=== PATIENT | male | born 1955 | race Caucasian/White ===

== ENCOUNTER 2023-08-06 10:30 | Observation (INO) ==
[2023-08-06] MEDS ORDERED: TUSSIONEX PENNKINETIC SUSP PO PRN (11:56)
[2023-08-06] MEDS ORDERED: NovoLIN R (or HumuLIN R) SUBCUT PRN (11:59)
[2023-08-06] MEDS ORDERED: ZOFRAN INJ 4 MG VIAL IVP PRN (12:00)
[2023-08-06] MEDS: VSL#3 PO SCH (13:20)
[2023-08-06] MEDS: LEVAQUIN PREMIX IV 500 MG 500 MG/100 ML BAG IV SCH (13:20)
[2023-08-06] MEDS: ROBITUSSIN DM PO SCH ×3 (13:20→20:19)
[2023-08-06] MEDS: NS 1,000 ML IV 1,000 ML IV SCH ×3 (13:21→23:35)
[2023-08-06 13:51] VITALS: BMI 35.6
[2023-08-06] MEDS: DUONEB 0.5 MG/3 MG (3 mL) NEB SCH ×2 (14:08→20:23)
[2023-08-06] MEDS: PULMICORT NEB TX 0.5 MG NEB SCH ×2 (14:08→20:22)
[2023-08-06] MEDS: FORTAZ or TAZICEF VIAL INJ 1 G in NS 100 ML IV 100 ML IV SCH ×3 (14:09→21:05)
--- NOTE | 2023-08-06 14:12 | RAD ---
HISTORYPneumoniaSTUDYChest PA and lateral viewsCOMPARISONNoneFINDINGSThe heart is not significantly enlarged. No acute pulmonary infiltrate, pneumonia or atelectasis noted. There is a calcified granuloma in the right lower lung.IMPRESSIONPostinflammatory calcification right lung. No acute disease demonstrated.Electronically signed by: TRACEY LOU (Aug 06, 2023 14:11:53)
[2023-08-06 14:19] LABS: ABG ALLEN TEST POS; ABG BASE EXCESS 4.9 mmol/L (-2.0-2.0); ABG HCO3 29.2 mmol/L (22-26)
[2023-08-06 15:28] LABS: BASOPHILS % (AUTO) 0.5 % (0.2-1.0); EOSINOPHILS # (AUTO) 0.1 x10^3/uL (0.0-0.2); EOSINOPHILS % (AUTO) 1.7 % (0.9-2.9); HEMATOCRIT 44.2 % (42.0-54.0); HEMOGLOBIN 15.1 g/dL (13.5-18.0); LYMPHOCYTES % (AUTO) 26.8 % (21.0-51.0); MEAN CORPUSCULAR HGB CONC 34.1 g/dL (33.0-35.0); MEAN CORPUSCULAR VOLUME 96.5 fL (80.0-100.0); MEAN PLATELET VOLUME 8.7 fL (7.4-11.0); MONOCYTES # (AUTO) 0.5 x10^3/uL (0.3-0.8); MONOCYTES % (AUTO) 7.2 % (0.0-13.0); NEUTROPHILS # (AUTO) 4.8 x10^3/uL (2.2-4.8); NEUTROPHILS % (AUTO) 63.8 % (42.0-75.0); PLATELET COUNT 192 X10^3/uL (150.0-450.0); RED BLOOD COUNT 4.57 X10^6/uL (4.7-6.0); RED CELL DISTRIBUTION WIDTH 14.5 % (11.6-16.5); WHITE BLOOD COUNT 7.4 X10^3/uL (3.6-10.0)
[2023-08-06 15:41] LABS: ALANINE AMINOTRANSFERASE 43 Units/L (12-78); ALBUMIN 3.7 g/dL (3.4-5.0); ALKALINE PHOSPHATASE 76 Units/L (46-116); ASPARTATE AMINO TRANSFERASE 48 Units/L (15-37); BLOOD UREA NITROGEN 20 mg/dL (7-18); CALCIUM 8.7 mg/dL (8.5-10.1); CHLORIDE 100 mmol/L (98-107); COR NA(FOR HYPERGLY) 139 mmol/L (136-145); CREATININE 1.11 mg/dL (0.70-1.30); GLUCOSE 113 mg/dL (65-99); POTASSIUM 3.4 mmol/L (3.5-5.1); SODIUM 139 mmol/L (136-145); TOTAL PROTEIN 7.5 g/dL (6.4-8.2); eGFR NON BLACK RACES > 60 (>60)
[2023-08-06] MEDS ORDERED: CONSULT PHARMACY - POTASSIUM & MAGNESIUM XX SCH (16:00)
[2023-08-06] MEDS ORDERED: K-DUR TAB 20 MEQ PO SCH (16:00)
[2023-08-06] MEDS: SNACK - Diabetic Appropriate PO SCH (20:19)
[2023-08-06] MEDS: COLACE CAP 100 MG PO PRN (20:19)
[2023-08-06] MEDS: MILK OF MAGNESIA PO PRN (20:19)
[2023-08-06] MEDS ORDERED: ZOFRAN TAB 4 MG PO PRN (21:18)
[2023-08-06] MEDS ORDERED: ULTRAM PO PRN (21:18)
[2023-08-06] MEDS ORDERED: ATIVAN TAB 1 MG PO PRN (21:18)
[2023-08-07] MEDS: NS 1,000 ML IV 1,000 ML IV SCH ×4 (03:13→19:15)
[2023-08-07] MEDS: FORTAZ or TAZICEF VIAL INJ 1 G in NS 100 ML IV 100 ML IV SCH ×3 (05:10→21:11)
--- NOTE | 2023-08-07 06:11 | RAD ---
HISTORYSOB Relevant Clinical InformationSTUDYCHEST, 1 [id number]/2023FINDINGSThe trachea is midline. The cardiac silhouette is unremarkable. The lungs are clear without focal infiltrate or effusion. Small calcified granuloma within the right lung base. The bony thorax is unremarkable.IMPRESSIONNo acute cardiopulmonary findings .Electronically signed by: Alberto Alex (Aug 07, 2023 06:09:56)
[2023-08-07] MEDS: DUONEB 0.5 MG/3 MG (3 mL) NEB SCH ×4 (06:15→20:30)
[2023-08-07 06:33] LABS: BASOPHILS % (AUTO) 0.6 % (0.2-1.0); EOSINOPHILS # (AUTO) 0.1 x10^3/uL (0.0-0.2); EOSINOPHILS % (AUTO) 2.2 % (0.9-2.9); HEMATOCRIT 38.4 % (42.0-54.0); HEMOGLOBIN 13.1 g/dL (13.5-18.0); LYMPHOCYTES # (AUTO) 1.5 X10^3/uL (1.3-2.9); LYMPHOCYTES % (AUTO) 26.2 % (21.0-51.0); MEAN CORPUSCULAR HGB CONC 34.2 g/dL (33.0-35.0); MEAN CORPUSCULAR VOLUME 96.7 fL (80.0-100.0); MEAN PLATELET VOLUME 8.7 fL (7.4-11.0); MONOCYTES # (AUTO) 0.5 x10^3/uL (0.3-0.8); MONOCYTES % (AUTO) 8.6 % (0.0-13.0); NEUTROPHILS # (AUTO) 3.6 x10^3/uL (2.2-4.8); NEUTROPHILS % (AUTO) 62.4 % (42.0-75.0); PLATELET COUNT 163 X10^3/uL (150.0-450.0); RED BLOOD COUNT 3.97 X10^6/uL (4.7-6.0); RED CELL DISTRIBUTION WIDTH 14.1 % (11.6-16.5); WHITE BLOOD COUNT 5.8 X10^3/uL (3.6-10.0)
[2023-08-07 07:00] LABS: ALANINE AMINOTRANSFERASE 34 Units/L (12-78); ALBUMIN 2.9 g/dL (3.4-5.0); ALKALINE PHOSPHATASE 57 Units/L (46-116); ASPARTATE AMINO TRANSFERASE 38 Units/L (15-37); BLOOD UREA NITROGEN 16 mg/dL (7-18); CALCIUM 7.9 mg/dL (8.5-10.1); CARBON DIOXIDE 31.5 mmol/L (21-32); CHLORIDE 103 mmol/L (98-107); COR CA(FOR HYPOALB) 8.8 mg/dL (8.5-10.1); COR NA(FOR HYPERGLY) 140 mmol/L (136-145); GLUCOSE 150 mg/dL (65-99); SODIUM 139 mmol/L (136-145); TOTAL PROTEIN 5.9 g/dL (6.4-8.2); eGFR NON BLACK RACES > 60 (>60)
[2023-08-07] MEDS: PULMICORT NEB TX 0.5 MG NEB SCH ×2 (08:53→20:30)
[2023-08-07] MEDS ORDERED: TOPROL XL PO ONE (08:55)
[2023-08-07] MEDS ORDERED: TOPROL XL PO SCH (09:00)
[2023-08-07] MEDS: LEVAQUIN PREMIX IV 500 MG 500 MG/100 ML BAG IV SCH (09:02)
[2023-08-07] MEDS: ROBITUSSIN DM PO SCH ×4 (09:03→20:33)
[2023-08-07] MEDS: CLARITIN PO SCH (09:03)
[2023-08-07] MEDS: VSL#3 PO SCH (09:03)
[2023-08-07] MEDS: ZESTORETIC 20/25 MG PO SCH (09:03)
[2023-08-07] MEDS: LOVENOX INJ 40 MG SYR SC SCH (09:03)
[2023-08-07] MEDS: GLUCOPHAGE XR 24-HR PO SCH (09:03)
--- NOTE | 2023-08-07 11:13 | DR.UPDATE ---
H&P Update Prescription drug monitoring program results: PDMP reviewed and no concerns identified H&P Reviewed: Yes Any changes to H&P?: Yes Changes noted:: WAS A DIRECT ADMISSION TO THE HOSPITAL, OBSERVATION STATUS, FOR TREATMENT OF BRONCHOPNEUMONIA, FAILED OUTPATIENT TREATMENT. PATIENT HAS HAD MULTIPLE ROCEPHIN INJECTIONS AND HAS ALSO BEEN TAKING CIPRO 500MG BID AND COUGH MEDICATION WITH CODEINE SINCE 07/24/23. HE DENIES IMPROVEMENT IN SYMPTOMS DESPITE COMPLIANCE WITH MEDICATIONS. HE CONTINUES TO HAVE A COUGH THAT IS PRODUCTIVE OF YELLOW SPUTUM, SHORTNESS OF BREATH, AND GENERALIZED WEAKNESS. HE HAS A PMH OF HYPERLIPIDEMIA, HTN, DM II, BPH, ANXIETY, GERD, ALLERGIC RHINITIS. ON ARRIVAL TO THE HOSPITAL, HIS VITALS WERE: 98.8-94-20-92%-126/70. LABS WERE OBTAINED. WBC 7.4, RBC 4.57, HGB 15.1, HCT 44.2, PLT COUNT 192, SODIUM 139, POTASSIUM 3.4, CHLORIDE 100, CARBON DIOXIDE 31.0, BUN 20, CREATININE 1.11, GLUCOSE 113, CALCIUM 8.7, TOTAL BILI 1.00, AST 48, ALT 43, ALK PHOS 76, TOTAL PROTEIN 7.5, ALBUMIN 3.7, MAGNESIUM 2.0. BLOOD AND SPUTUM CULTURES WERE SET UP. A RESPIRATORY VIRAL PANEL WAS ALSO SET UP. ABG WAS OBTAINED AND REVEALED: PH 7.460, PC02 41, P02 81, HC03 29.2, 02 SAT 96, BASE EXCESS 4.9, FI02 21.0. ON ADMISSION, HE WAS STARTED ON NORMAL SALINE AT 125 ML/HR, FORTAZ 1G IV Q8H, LEVAQUIN 500MG IV DAILY, DUONEBS TID, PULMICORT NEBS BID, ROBITUSSIN DM QID, TUSSIONEX 5ML Q12H PRN, LOVENOX 40MG SC DAILY, OTBS ACHS, HUMULIN R SLIDING SCALE, ZOFRAN 4MG IV Q4H PRN. WE WILL RESUME HIS HOME MEDICATIONS OF PEPCID, ZESTORETIC, CLARITIN, ATIVAN, GLUCOPHAGE, TOPROL XL, CRESTOR, FLOMAX, AND TRAMADOL. OTHERWISE, WE PLAN TO FOLLOW UP WITH AM LABS AND CONTINUE TO MONITOR. TIME SPENT ON CLINICAL ASSESSMENT, REVIEWING LABS AND IMAGING, DECISION MAKING, AND DOCUMENTATION GREATER THAN 75 MINUTES. Patient was examined?: Yes
[2023-08-07] MEDS: PEPCID TAB 40 MG PO SCH ×2 (18:24→20:47)
[2023-08-07] MEDS ORDERED: PEPCID TAB 40 MG ONE (18:25)
[2023-08-07] MEDS: MILK OF MAGNESIA PO PRN (18:26)
[2023-08-07] MEDS: COLACE CAP 100 MG PO PRN ×2 (18:26→20:33)
[2023-08-07] MEDS: SNACK - Diabetic Appropriate PO SCH (19:15)
[2023-08-07] MEDS ORDERED: CRESTOR TAB 10 MG PO SCH (21:00)
[2023-08-07] MEDS ORDERED: FLOMAX PO SCH (21:00)
[2023-08-07 23:56] VITALS: O2SAT 95
[2023-08-08] MEDS: NS 1,000 ML IV 1,000 ML IV SCH ×2 (00:04→03:10)
[2023-08-08 04:46] VITALS: RESP 20
[2023-08-08] MEDS: FORTAZ or TAZICEF VIAL INJ 1 G in NS 100 ML IV 100 ML IV SCH (05:07)
[2023-08-08 05:52] LABS: BASOPHILS % (AUTO) 0.8 % (0.2-1.0); EOSINOPHILS # (AUTO) 0.2 x10^3/uL (0.0-0.2); EOSINOPHILS % (AUTO) 2.6 % (0.9-2.9); HEMATOCRIT 37.6 % (42.0-54.0); HEMOGLOBIN 12.9 g/dL (13.5-18.0); LYMPHOCYTES # (AUTO) 1.7 X10^3/uL (1.3-2.9); LYMPHOCYTES % (AUTO) 26.9 % (21.0-51.0); MEAN CORPUSCULAR HEMOGLOBIN 33.3 pg (27.0-34.0); MEAN CORPUSCULAR HGB CONC 34.3 g/dL (33.0-35.0); MEAN CORPUSCULAR VOLUME 97.3 fL (80.0-100.0); MEAN PLATELET VOLUME 8.4 fL (7.4-11.0); MONOCYTES # (AUTO) 0.6 x10^3/uL (0.3-0.8); MONOCYTES % (AUTO) 8.8 % (0.0-13.0); NEUTROPHILS # (AUTO) 3.8 x10^3/uL (2.2-4.8); NEUTROPHILS % (AUTO) 60.9 % (42.0-75.0); PLATELET COUNT 155 X10^3/uL (150.0-450.0); RED BLOOD COUNT 3.86 X10^6/uL (4.7-6.0); WHITE BLOOD COUNT 6.3 X10^3/uL (3.6-10.0)
[2023-08-08] MEDS: DUONEB 0.5 MG/3 MG (3 mL) NEB SCH (06:09)
[2023-08-08 06:18] LABS: ALANINE AMINOTRANSFERASE 33 Units/L (12-78); ALBUMIN 2.8 g/dL (3.4-5.0); ALKALINE PHOSPHATASE 60 Units/L (46-116); ASPARTATE AMINO TRANSFERASE 38 Units/L (15-37); BLOOD UREA NITROGEN 11 mg/dL (7-18); CALCIUM 7.9 mg/dL (8.5-10.1); CARBON DIOXIDE 27.3 mmol/L (21-32); CHLORIDE 105 mmol/L (98-107); COR CA(FOR HYPOALB) 8.9 mg/dL (8.5-10.1); COR NA(FOR HYPERGLY) 140 mmol/L (136-145); CREATININE 1.04 mg/dL (0.70-1.30); GLUCOSE 190 mg/dL (65-99); POTASSIUM 4.2 mmol/L (3.5-5.1); SODIUM 138 mmol/L (136-145); TOTAL PROTEIN 5.8 g/dL (6.4-8.2); eGFR NON BLACK RACES > 60 (>60)
--- NOTE | 2023-08-08 07:35 | RAD ---
EXAM:CHEST, 1 VIEWHISTORY:SOB, PNEUMONIACOMPARISON:08/07/2023.TECHNIQUE: .br.br.br.br contours appear stable compared to prior. Similar minor left base subsegmental atelectasis. Similar-appearing right lower lung calcified granuloma. No definite pleural effusion pneumothorax.IMPRESSION:No significant change compared to prior radiograph.THIS IS AN ELECTRONICALLY VERIFIED FINAL REPORT08/08/2023 7:32 AM - Electronically signed by Jero Nascimento MD
[2023-08-08] MEDS ORDERED: TOPROL XL PO ONE (08:28)
[2023-08-08] MEDS: PULMICORT NEB TX 0.5 MG NEB SCH (08:51)
[2023-08-08] MEDS: ZESTORETIC 20/25 MG PO SCH (08:52)
[2023-08-08] MEDS: LOVENOX INJ 40 MG SYR SC SCH (08:52)
[2023-08-08] MEDS: ROBITUSSIN DM PO SCH (08:52)
[2023-08-08] MEDS: VSL#3 PO SCH (08:53)
[2023-08-08] MEDS: LEVAQUIN PREMIX IV 500 MG 500 MG/100 ML BAG IV SCH (08:54)
[2023-08-08] MEDS: GLUCOPHAGE XR 24-HR PO SCH (08:54)
[2023-08-08] MEDS: CLARITIN PO SCH (08:54)
[2023-08-08 09:51] VITALS: BP 121/79; PULSE 75; TEMP 98.1
== END 2023-08-08 12:05 | disposition home or self-care (01) ==
LOC: MED/SURG
PROVIDERS: ADMIT Internal Medicine; ATTEND Internal Medicine
DX: E78.2 Mixed hyperlipidemia; I10 Essential (primary) hypertension; F41.8 Other specified anxiety disorders; R53.1 Weakness; K21.9 Gastro-esophageal reflux disease without esophagitis; E11.65 Type 2 diabetes mellitus with hyperglycemia; R74.01 Elevation of levels of liver transaminase levels; J18.0 Bronchopneumonia, unspecified organism; R06.02 Shortness of breath